=== PATIENT | male | born 1960 | race African-American/Black ===

== ENCOUNTER → 2016-10-22 | Outpatient (CLI) | payer SELFPAY ==
[2016-01-18 08:29] VITALS: BP 119/79
== END | disposition home or self-care (01) ==
LOC: LAB 14:57
DX: M62.81 Muscle weakness (generalized) (principal); M62.82 Rhabdomyolysis; R74.8 Abnormal levels of other serum enzymes; R94.5 Abnormal results of liver function studies
CPT/HCPCS: 36415; 82085; 82550; 82784; 84450; 84460; 85652; 86140

== ENCOUNTER → 2017-01-17 | Outpatient (CLI) | payer SELFPAY ==
[2016-01-18 08:29] VITALS: BP 119/79
[2017-01-21 06:14] LABS: ALDOLASE 86.6 U/L (1.5-8.1)
== END ==
LOC: LAB 10:34
DX: M33.22 Polymyositis with myopathy (principal); M62.81 Muscle weakness (generalized); M62.82 Rhabdomyolysis; R74.8 Abnormal levels of other serum enzymes; R94.5 Abnormal results of liver function studies
CPT/HCPCS: 36415; 82085; 82550; 82784; 84450; 84460; 85652; 86140

== ENCOUNTER → 2017-03-01 | Outpatient (CLI) | payer SELFPAY ==
[2016-01-18 08:29] VITALS: BP 119/79
[2017-03-01 16:53] LABS: ALANINE AMINOTRANSFERASE 395 Units/L (12-78); ALBUMIN 3.7 g/dL (3.4-5.0); ALKALINE PHOSPHATASE 61 Units/L (46-116); ASPARTATE AMINO TRANSFERASE 290 Units/L (15-37); BLOOD UREA NITROGEN 15 mg/dL (7-18); CALCIUM 8.7 mg/dL (8.5-10.1); CARBON DIOXIDE 25.2 mmol/L (21-32); CHLORIDE 108 mmol/L (98-107); COR NA(FOR HYPERGLY) 144 mmol/L (136-145); CREATININE 0.78 mg/dL (0.70-1.30); SODIUM 144 mmol/L (136-145); TOTAL PROTEIN 7.4 g/dL (6.4-8.2); eGFR BLACK RACES > 60 (>60); eGFR NON BLACK RACES > 60 (>60)
[2017-03-01 17:36] LABS: CREATINE KINASE 15743 Units/L (39-308)
== END ==
LOC: LAB 15:55
PROVIDERS: ATTEND Internal Medicine Rheumatology
DX: G72.41 Inclusion body myositis [IBM] (principal); M33.22 Polymyositis with myopathy; M62.81 Muscle weakness (generalized); M62.82 Rhabdomyolysis; Z68.30 Body mass index [BMI] 30.0-30.9, adult
CPT/HCPCS: 36415; 80053; 82085; 82550; 85652

== ENCOUNTER → 2017-06-20 | Outpatient (CLI) | payer OTHER ==
[2016-01-18 08:29] VITALS: BP 119/79
[2017-06-20 12:55] LABS: BASOPHILS # (AUTO) 0.1 X10^3/uL (0.0-0.1); BASOPHILS % (AUTO) 1.2 % (0.2-1.0); EOSINOPHILS # (AUTO) 0.1 x10^3/uL (0.0-0.2); EOSINOPHILS % (AUTO) 1.2 % (0.9-2.9); HEMATOCRIT 38.5 % (42.0-54.0); HEMOGLOBIN 13.4 g/dL (13.5-18.0); LYMPHOCYTES # (AUTO) 1.2 X10^3/uL (1.3-2.9); LYMPHOCYTES % (AUTO) 26.4 % (21.0-51.0); MEAN CORPUSCULAR HEMOGLOBIN 30.4 pg (27.0-34.0); MEAN CORPUSCULAR HGB CONC 34.8 g/dL (33.0-35.0); MEAN CORPUSCULAR VOLUME 87.5 fL (80.0-100.0); MONOCYTES # (AUTO) 0.3 x10^3/uL (0.3-0.8); MONOCYTES % (AUTO) 6.3 % (0.0-13.0); NEUTROPHILS # (AUTO) 2.9 x10^3/uL (2.2-4.8); NEUTROPHILS % (AUTO) 64.9 % (42.0-75.0); PLATELET COUNT 224 X10^3/uL (150.0-450.0); WHITE BLOOD COUNT 4.5 X10^3/uL (3.6-10.0)
[2017-06-20 13:12] LABS: ALANINE AMINOTRANSFERASE 270 Units/L (12-78); ALBUMIN 3.6 g/dL (3.4-5.0); ALKALINE PHOSPHATASE 49 Units/L (46-116); ASPARTATE AMINO TRANSFERASE 388 Units/L (15-37); BLOOD UREA NITROGEN 11 mg/dL (7-18); CALCIUM 8.6 mg/dL (8.5-10.1); CARBON DIOXIDE 27.8 mmol/L (21-32); CHLORIDE 104 mmol/L (98-107); CREATININE 0.59 mg/dL (0.70-1.30); SODIUM 142 mmol/L (136-145); eGFR BLACK RACES > 60 (>60); eGFR NON BLACK RACES > 60 (>60)
[2017-06-20 14:29] LABS: CREATINE KINASE > 20000 Units/L (39-308)
== END ==
LOC: LAB 12:12
PROVIDERS: ATTEND Nurse Practitioner Family
DX: M62.81 Muscle weakness (generalized) (principal); M62.82 Rhabdomyolysis; R94.5 Abnormal results of liver function studies
CPT/HCPCS: 36415; 80053; 82550; 85025

== ENCOUNTER → 2017-07-25 | Outpatient (CLI) | payer OTHER ==
[2016-01-18 08:29] VITALS: BP 119/79
[2017-07-25 09:41] LABS: TSH (3RD GENERATION) 2.093 uIU/mL (0.358-3.74)
== END ==
LOC: LAB 08:55
PROVIDERS: ATTEND Physician Assistant
DX: R53.83 Other fatigue (principal)
CPT/HCPCS: 36415; 82607; 84403; 84443